=== PATIENT | female | born 1955 | race American Indian/Alaskan Native ===

== ENCOUNTER 2016-10-17 10:02 | Emergency (ER) | payer MEDICAID ==
[2016-10-17 10:11] VITALS: TEMP 98.4
--- NOTE | 2016-10-17 10:41 | ED PDOC ---
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 she says she has no sx at rest, only with getting up and moving around. she denies any headache, vision or hearing change, difficulty swallowing, walking, or any other complaints. she denies any pmh or meds. smoked for 40 years. denies etoh or drugs. Past Medical History - Psychiatric Hx Substance Use: No - Anesthesia Hx Anesthesia: No Family/Social History Family/Social History: Neoplasm/Cancer Smoking Status: Heavy Smoker > 10 Cigarettes Daily Hx Alcohol Use: No Hx Substance Use: No Allergies/Home Meds Allergies/Adverse Reactions: Allergies No Known Allergies Allergy (Verified 10/17/16 10:17) Review of Systems - Review of Systems Constitutional: absent: Fevers Eyes: absent: Vision Changes, Photophobia ENT: absent: Hearing Changes Respiratory: absent: SOB Cardiovascular: absent: Chest Pain Gastrointestinal: absent: Abdominal Pain Neurological: Dizziness. absent: Headache, Focal Weakness, Gait Changes, Speech Changes Physical Exam Vital Signs Reviewed: Yes Vital Signs Temp Pulse Resp BP Pulse Ox 10/17/16 12:55 63 17 127/68 100 10/17/16 10:08 98.4 F 93 H 18 152/78 H 98 Appearance: Positive for: Well-Appearing, Non-Toxic, Comfortable Pain Distress: None Mental Status: Positive for: Alert and Oriented X 3 - Systems Exam Head: Present: Atraumatic Pupils: Present: PERRL Extroacular Muscles: Present: EOMI Mouth: Present: Moist Mucous Membranes Neck: Present: Normal Range of Motion Respiratory/Chest: Present: Clear to Auscultation. No: Respiratory Distress, Accessory Muscle Use Cardiovascular: Present: Regular Rate and Rhythm Abdomen: No: Tenderness, Distention Neurological: Present: GCS=15, CN II-XII Intact, Motor Func Grossly Intact, Normal Sensory Function, Normal Cerebellar Funct, Gait Normal, Other ( fatigueable rightward nystagmus) Skin: Present: Warm, Dry Psychiatric: Present: Alert, Oriented x 3 Medical Decision Making ED Course and Treatment: ecg- nsr 77, nl axis, nl int, no acute ischemia 10/17/16 12:25 pt says her sx are resolved and she feels much better. disc results, plan for close f/u w pcp and rtr. pt v/u. PROCEDURE: CT HEAD WITHOUT CONTRAST. HISTORY: dizzy COMPARISON: None available. TECHNIQUE: Axial computed tomography images were obtained through the head/brain without intravenous contrast. Radiation dose: Total exam DLP = 1149.85 mGy-cm. This CT exam was performed using one or more of the following dose reduction techniques: Automated exposure control, adjustment of the mA and/or kV according to patient size, and/or use of iterative reconstruction technique. FINDINGS: HEMORRHAGE: No acute parenchymal, subarachnoid or extra-axial hemorrhage. BRAIN: There there are minor chronic periventricular white matter ischemic changes most conspicuous in the perifrontal horn regions right greater than left. Additionally, there appears to be a few scattered subcortical chronic appearing ischemic changes as well. Note that the possibility of a small hyperacute infarct cannot be completely excluded. Clinical correlation recommended. Mild generalized volume loss. No obvious parenchymal nor extra-axial masses or collections seen on this noncontrast study. VENTRICLES: No evidence of obstructive hydrocephalus. CALVARIUM: Calvarium appears intact. . PARANASAL SINUSES: Frontal sinuses are underpneumatized/ hypoplastic. Remaining visualized paranasal sinuses are well-developed and currently well-aerated. MASTOID AIR CELLS: Extensive and exuberant aeration of the mastoid air complexes. OTHER FINDINGS: None. IMPRESSION: No acute intracranial hemorrhage. 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 Mild generalized volume loss. - RAD Interpretation Radiology Orders: 10/17/16 10:36 HEAD W/O CONTRAST [CT] Stat - Medication Orders Current Medication Orders: Discontinued Medications Meclizine HCl (Antivert) 25 mg PO ONCE ONE Stop: 10/17/16 10:38 Last Admin: 10/17/16 10:44 Dose: 25 mg Disposition/Present on Arrival - Present on Arrival Any Indicators Present on Arrival: No - Disposition Have Diagnosis and Disposition been Completed?: Yes Diagnosis: Vertigo Disposition: HOME/ ROUTINE Disposition Time: 12:26 Condition: IMPROVED Discharge Instructions (ExitCare): Vertigo (ED) Additional Instructions: Please follow up with a primary doctor. Return to the ER for any worsening symptoms, headache, vision or hearing changes, numbness, weakness, difficulty speaking or walking, or for any other concerns. Prescriptions: Meclizine [Antivert] 25 mg PO Q8H PRN #20 tab PRN Reason: Vertigo Referrals: [facility] [place] [Outside]
--- NOTE | 2016-10-17 12:05 | CT ---
PROCEDURE: CT HEAD WITHOUT CONTRAST. HISTORY: dizzy COMPARISON: None available. TECHNIQUE: Axial computed tomography images were obtained through the head/brain without intravenous contrast. Radiation dose: Total exam DLP = 1149.85 mGy-cm. This CT exam was performed using one or more of the following dose reduction techniques: Automated exposure control, adjustment of the mA and/or kV according to patient size, and/or use of iterative reconstruction technique. FINDINGS: HEMORRHAGE: No acute parenchymal, subarachnoid or extra-axial hemorrhage. BRAIN: There there are minor chronic periventricular white matter ischemic changes most conspicuous in the perifrontal horn regions right greater than left. Additionally, there appears to be a few scattered subcortical chronic appearing ischemic changes as well. Note that the possibility of a small hyperacute infarct cannot be completely excluded. Clinical correlation recommended. Mild generalized volume loss. No obvious parenchymal nor extra-axial masses or collections seen on this noncontrast study. VENTRICLES: No evidence of obstructive hydrocephalus. CALVARIUM: Calvarium appears intact. . PARANASAL SINUSES: Frontal sinuses are underpneumatized/ hypoplastic. Remaining visualized paranasal sinuses are well-developed and currently well-aerated. MASTOID AIR CELLS: Extensive and exuberant aeration of the mastoid air complexes. OTHER FINDINGS: None. IMPRESSION: No acute intracranial hemorrhage. 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 Mild generalized volume loss.
[2016-10-17 12:56] VITALS: BP 127/68; PULSE 63; RESP 17; O2SAT 100
--- NOTE | 2016-10-18 01:05 | CARD ---
APPROVED REPORT EKG Measurement Heart [id number] <Conclusion> Normal sinus rhythm Normal ECG
== END 2016-10-17 12:55 | disposition home or self-care (01) ==
LOC: H.ER 10:02
DX: R42 Dizziness and giddiness (principal)